=== PATIENT | male | born 1980 | race African-American/Black ===

== ENCOUNTER 2017-11-26 10:53 | Outpatient (CLI) | payer BC ==
--- NOTE | 2017-11-26 12:01 | Ultrasound Report ---
Renal ultrasound: Hematuria, back pain. The right renal length is 9.6 cm and the left renal length is 9.8 cm. Both kidneys have normal parenchymal thickness and shape. No evidence of calculus, mass, or hydronephrosis identified. Imaging of the urinary bladder is grossly normal. Impression: No pathology identified.
--- NOTE | 2017-11-26 13:52 | Cat Scan Report ---
FINAL REPORT EXAM: CT ABDOMEN PELVIS WO CON HISTORY: BACK PAIN, HEMATURIA TECHNIQUE: CT examination of the ABDOMEN without IV contrast CT examination of the PELVIS without IV contrast PRIORS: None. FINDINGS: Nonspecific 4 mm pulmonary nodule right middle lobe, series 3, image 43. Normal noncontrast appearance of the liver, gallbladder, adrenals, pancreas, and spleen. Normal caliber abdominal aorta and IVC. No renal calculus or hydronephrosis. Normal-appearing kidneys. No ureteral calculus or distention. Very small fat containing umbilical hernia. Very small fat containing right inguinal hernia. No retroperitoneal adenopathy. No evidence of mesenteric mass. Minimal degenerative change in the regional skeleton. No evidence of vertebral compression fracture, spondylolysis, or spondylolisthesis. No evidence of acute fracture or dislocation. Normal-appearing stomach and duodenum. No small bowel distention in the abdomen and pelvis. No pelvic free fluid. Normal-appearing urinary bladder, prostate, seminal vesicles, and rectum. No sigmoid colon abnormality. No gross ascites, free air, or colonic distention. Normal-appearing cecum, terminal ileum. Appendix not visualized. No pericecal inflammation. IMPRESSION: 4 mm right middle lobe pulmonary nodule. Recommend followup chest CT to complete the lung evaluation Very small fat containing umbilical and right inguinal hernias No CT evidence of urinary tract calculus or obstruction
== END 2017-11-26 10:54 | disposition home or self-care (01) ==
LOC: CT 10:53
DX: K42.9 Umbilical hernia without obstruction or gangrene (principal); K40.90 Unilateral inguinal hernia, without obstruction or gangrene, not specified as recurrent; R91.1 Solitary pulmonary nodule; M54.5 Low back pain
CPT/HCPCS: 74176; 76770